=== PATIENT | female | born 1995 | race Caucasian/White ===

== ENCOUNTER 2021-01-03 22:04 | Emergency (ER) | payer OTHER, SELFPAY ==
[2021-01-03 22:17] VITALS: BP 143/72; PULSE 72; RESP 18; TEMP 36.6; O2SAT 99; BMI 26.9
[2021-01-03 22:21] VITALS: BMI 29.6
--- NOTE | 2021-01-03 22:21 | CT_ITS ---
PROCEDURE INFORMATION: Exam: CT Head Without Contrast Exam date and time: 01/03/2021 10:21 PM Age: 25 years old Clinical indication: Injury or trauma; Fall; Blunt trauma (contusions or hematomas); Without loss of consciousness; Injury date: 12/30/2020; Injury details: Fell hit forehead headache and neck pain TECHNIQUE: Imaging protocol: Computed tomography of the head without contrast. 3D rendering (Not supervised by radiologist): MIP and/or 3D reconstructed images were created by the technologist. Total images: 521 Radiation optimization: All CT scans at this facility use at least one of these dose optimization techniques: automated exposure control; mA and/or kV adjustment per patient size (includes targeted exams where dose is matched to clinical indication); or iterative reconstruction. COMPARISON: No relevant prior studies available. FINDINGS: Brain: No extra-axial fluid collections. No evidence of acute intracranial hemorrhage. Sibley-white differentiation is well maintained. No CT evidence of large territory acute or subacute intracranial ischemia/infarct. No intracranial mass lesions. No midline shift or herniation. Cerebral ventricles: Ventricles normal. Paranasal sinuses: Visualized paranasal sinuses are clear. Mastoid air cells: Visualized mastoid air cells are clear. Orbital cavity: Visualized orbital contents demonstrate no evidence of acute abnormality. Vasculature: The visualized major intracranial arterial segments demonstrate no gross abnormality by noncontrast CT. No asymmetric vascular hyperdensities suggestive of thrombosis are identified. Bones/joints: The calvarium and visualized facial bones are intact. Soft tissues: The scalp and visualized soft tissues demonstrate no acute abnormality. Other findings: The IACs are grossly normal. The sella is grossly normal. IMPRESSION: No acute intracranial process. No intracranial hemorrhage or mass effect.
--- NOTE | 2021-01-03 22:22 | CT_ITS ---
PROCEDURE INFORMATION: Exam: CT Cervical Spine Without Contrast Exam date and time: 01/03/2021 10:22 PM Age: 25 years old Clinical indication: Injury or trauma; Fall; Blunt trauma; Injury date: 12/30/2020; Injury details: Fell hit forehead headache and neck pain TECHNIQUE: Imaging protocol: Computed tomography images of the cervical spine without contrast. Total images: 242 Radiation optimization: All CT scans at this facility use at least one of these dose optimization techniques: automated exposure control; mA and/or kV adjustment per patient size (includes targeted exams where dose is matched to clinical indication); or iterative reconstruction. COMPARISON: CT HEAD/BRAIN WO CON 01/03/2021 10:27 PM FINDINGS: Bones/joints: Craniocervical alignment is normal. The odontoid is intact. No fractures. Mild reversal of cervical lordosis may be positional or could relate to an element of muscular strain/spasm. Cervical alignment is otherwise well maintained. No blastic or lytic lesions. Discs/Spinal canal/Neural foramina: The occipital condyles are intact. No jumped or perched facets. Disc space heights are well-maintained. No compressive soft disc protrusion or extrusion is evident by CT. No significant central canal stenosis. No significant neuroforaminal stenosis. Thyroid: The visualized thyroid gland is unremarkable. Lungs: Visualized pulmonary apices are clear. Soft tissues: Paraspinous soft tissues are unremarkable without significant soft tissue swelling or soft tissue hematoma. IMPRESSION: 1. No evidence of fracture or acute traumatic subluxation. 2. Mild reversal of cervical lordosis may be positional or could relate to an element of muscular strain/spasm. Cervical alignment is otherwise well maintained.
--- NOTE | 2021-01-03 23:30 | [facility].EDGENADL ---
ED Disposition Clinical Impression: Concussion without loss of consciousness Qualifiers: Encounter type: initial encounter Qualified Code(s): S06.0X0A - Concussion without loss of consciousness, initial encounter Disposition: Home, Self-Care Condition on Discharge: Fair Instructions: DI for Concussion, DI for Closed Head Injury Additional Instructions: You have been evaluated for fall, closed head injury. Diagnosed with a concussion. Please monitor your symptoms at home. Take Tylenol and Motrin for pain. Zofran for nausea. Avoid activities that cause headache. Follow-up with your primary care doctor within 24 to 48 hours. Return to the emergency department at once for any new or worsening symptoms. Prescriptions: ondansetron HCL [Ondansetron 4mg tab*] 4 mg PO Q6HP PRN #12 tab PRN Reason: Nausea Transmission Status: Pending to [id number] Referrals: Provider,Referral, [Primary Care Provider] - Time of Disposition: 23:36 - Critical Care Critical Care Time: No Attestation: On 01/03/21, the high probability of a clinically significant, sudden or life threatening deterioration of the following system(s) required my full and direct attention, intervention and personal management. The time I documented below is in addition to time spent performing reported procedures but includes the following listed in this critical care notation. Medical Decision Making - Medical Records Medical records reviewed: Yes: I reviewed the patient's medical records. - [place] Inquiry Pt receiving controlled substance: No Vital Signs: 01/03/21 22:17 Temperature 97.8 F Temperature Source Oral Pulse Rate [Right Brachial] 72 Respiratory Rate 18 Blood Pressure [Right Arm] 143/72 H Blood Pressure Mean [Right Arm] 95 Blood Pressure Source [Right Arm] Automatic Cuff Blood Pressure Position [Right Arm] Sitting 02 Sat by Pulse Oximetry 99 Oxygen Delivery Method Room Air Medical Decision Narrative: In summary this is a 25-year-old female presenting to the emergency department with headache, nausea, dizziness after head injury. Patient clinically stable on arrival. Vital signs within normal limits. Insert for close head injury, concussion. Cannot exclude intracranial bleed, subdural hematoma, skull fracture, C-spine injury. Will obtain noncontrast head CT and CT C-spine. Patient given Zofran ODT. Noncontrast head CT shows no intracranial bleed or skull fracture. CT C-spine shows no bony abnormality, no fracture. On reassessment patient feeling somewhat better. No nausea or vomiting while in the emergency department. Counseled on conservative management, anti-inflammatories like ibuprofen and Tylenol. Given prescription for Zofran for nausea. Counseled on brain rest and concussion management. PCP follow-up. General Adult HPI - General Chief complaint: Head Injury Stated complaint: LAY, dizziness hit head on concrete Time Seen by Provider: 01/03/21 22:20 Mode of Arrival: Family Vehicle Limitations: No Limitations Description of Symptoms (Recalled from ER Triage Doc. by RN): pt reports falling and hitting her head on the floor on wednesday (4 days ago) and have had headaches ever since. pt reports a small knot to her left forehead, but feels like the pain is in the back of her head same side. no loc at time. no neck pain or deformities noted. denies tingling or abnormal sensation throughout body. denies issues with UOP or bowels. no visual disturbances - History of Present Illness HPI narrative: 25-year-old female presenting to the emergency department with headache, dizziness after head injury. On Wednesday, 5 days ago she was walking out of her house onto the porch when she tripped over the door jam and fell onto the ground. She struck the left side of her forehead on wood. Was stunned, but did not lose consciousness. She was able to get up and ambulate. Over the last few days has had intermittent headaches and ligh
[2021-01-03 23:41] VITALS: BP 124/70; PULSE 71; RESP 18; TEMP 36.8; O2SAT 98
== END 2021-01-03 23:44 | disposition home or self-care (01) ==
PROVIDERS: Emergency Provider Emergency Medicine
DX: S06.0X0A Concussion without loss of consciousness, initial encounter (principal); W01.0XXA Fall on same level from slipping, tripping and stumbling without subsequent striking against object, initial encounter; Y92.018 Other place in single-family (private) house as the place of occurrence of the external cause
CPT/HCPCS: 70450; 72125; 99282